=== PATIENT | female | born 1945 | race Caucasian/White ===

== ENCOUNTER 2017-04-03 09:32 | Outpatient (CLI) | payer BC | END 2017-04-03 21:01 | disposition home or self-care (01) | LOC: SMA 09:32 | PROVIDERS: ATTEND Family Medicine | DX: Z12.31 Encounter for screening mammogram for malignant neoplasm of breast (principal) | CPT/HCPCS: G0202 ==

== ENCOUNTER 2018-05-12 12:25 | Outpatient (CLI) | payer BC | END 2018-05-12 20:45 | disposition home or self-care (01) | LOC: SMA 12:25 | PROVIDERS: ATTEND Family Medicine | DX: Z12.31 Encounter for screening mammogram for malignant neoplasm of breast (principal) | CPT/HCPCS: 77067 ==

== ENCOUNTER 2019-08-05 13:11 | Outpatient (CLI) | payer BC | END 2019-08-05 21:15 | disposition home or self-care (01) | LOC: SMA 13:11 | PROVIDERS: ATTEND Family Medicine | DX: Z12.31 Encounter for screening mammogram for malignant neoplasm of breast (principal) | CPT/HCPCS: 77067 ==

== ENCOUNTER 2020-12-21 10:55 | Outpatient (CLI) | payer BC | END 2020-12-21 19:57 | disposition home or self-care (01) | LOC: SMA 10:55 | PROVIDERS: ATTEND Family Medicine | DX: Z12.31 Encounter for screening mammogram for malignant neoplasm of breast (principal) | CPT/HCPCS: 77067 ==